=== PATIENT | female | born 1980 | race Caucasian/White ===

== ENCOUNTER → 2017-06-09 | Outpatient (CLI) | payer OTHER ==
[~2017-06-09] MED LIST: GADOBENATE 529MG/1ML 5 ML VIAL ONE; IOPAMIDOL-200 50 ML VIAL IS ONE
--- NOTE | 2017-06-09 17:11 | RADIOLOGY IMAGING REPORT ---
FACILITY: [facility] PATIENT NAME: Luann Suarez : 1980 MR: [id number] V: [id number] EXAM DATE: ORDERING PHYSICIAN: DORETHA SHARIF TECHNOLOGIST: Location: [facility] Patient: Luann Suarez : 1980 Visit/Account:[id number] Date of Sevice: 06/09/2017 MR arthrogram right shoulder Indication: Shoulder pain. Evaluate for labral tear. Comparison: None available Technique: Sagittal and coronal T1 weighted fat saturated and T2-weighted fat saturated as well as ax ial T1-weighted and a gradient echo images were obtained through the right shoulder after intra-artic ular administration of gadolinium. Findings: There is a type I acromion. A subacromial spur is seen along the undersurface of the acromion. Mild d egenerative changes are seen at the acromioclavicular joint. The glenohumeral joint is well distended with gadolinium at the time of imaging. Glenohumeral joint i s normally aligned with intact articular cartilage surfaces. No Hill-Sachs deformity. No glenoid frac ture or glenoid contusion. The glenoid labrum has a normal morphology. No evidence to suggest glenoid labral tear. With respect to the rotator cuff, there are mild changes of supraspinatus greater than infraspinatus insertional tendinopathy. No evidence for tear. The subscapularis insertion is intact. Long head jerod ps tendon is seen within the bicipital groove and the insertion upon the glenoid is normal. There is a small amount of fluid within the subacromial-subdeltoid bursa. No gadolinium is present wi thin this space. Rotator cuff musculature is normal in bulk. IMPRESSION: 1. No evidence of right shoulder glenoid labral tear. 2. Supraspinatus greater than infraspinatus insertional tendinopathy. No evidence of rotator cuff tea r. 3. Subacromial-subdeltoid bursitis. Report Dictated By: Chadd Jean Baptiste at 06/09/2017 5:00 PM Report E-Signed By: Chadd Jean Baptiste at 06/09/2017 5:07 PM WSN:[id number]
--- NOTE | 2017-06-09 17:30 | RADIOLOGY IMAGING REPORT ---
FACILITY: [facility] PATIENT NAME: Luann Suarez : 1980 MR: [id number] V: [id number] EXAM DATE: ORDERING PHYSICIAN: DORETHA SHARIF TECHNOLOGIST: Location: [facility] Patient: Luann Suarez : 1980 Visit/Account:[id number] Date of Sevice: 06/09/2017 Exam type: ARTHROGRAM PRE-MRI History: Shoulder pain, pre-MRI Comparison: None. Findings: Informed consent was obtained. The patient's right shoulder was prepped and draped in usual sterile fashion. Local anesthesia was accomplished with 1% lidocaine. Under fluoroscopic guidance a 22-gaug e spinal needle was advanced percutaneously into the anterior aspect of the right shoulder joint. On e mL of Isovue-200 was instilled into the right shoulder joint to confirm needle placement. Approxim ately 14 mL of a dilute gadolinium suspension was then instilled into the right shoulder joint under fluoroscopic guidance. The needle was removed and the procedure was accomplished without apparent co mplication. The patient was sent to for further imaging. The fluoroscopy dose area product is 72 .63 micro-Andujar per meter squared IMPRESSION: 1. Successful fluoroscopically guided right shoulder arthrogram Report Dictated By: Any Novoa MD at 06/09/2017 5:22 PM Report E-Signed By: Any Novoa MD at 06/09/2017 5:26 PM WSN:[id number]
== END ==
LOC: MRI 13:37
PROVIDERS: ATTEND Emergency Medicine Sports Medicine
DX: M75.91 Shoulder lesion, unspecified, right shoulder (principal); M75.51 Bursitis of right shoulder
CPT/HCPCS: 23350; 73222; 77002; A9577; Q9966